=== PATIENT | male | born 1945 | race Asian ===

== ENCOUNTER → 2019-06-30 | Outpatient (CLI) | payer MEDICARE, OTHER ==
[~2019-06-30] MED LIST: ASPI-825 PO; ATOR20TA86 PO
== END | disposition home or self-care (01) ==
LOC: RADPV 09:53
PROVIDERS: ATTEND Internal Medicine
DX: M17.0 Bilateral primary osteoarthritis of knee (principal); M11.262 Other chondrocalcinosis, left knee; M25.462 Effusion, left knee

== ENCOUNTER → 2023-07-24 | Outpatient (CLI) | payer MEDICARE, OTHER ==
[~2023-07-24] VITALS: Ht 167.6 cm; Wt 66.0 kg
[~2023-07-24] MED LIST changes: +ATOR20TA PO; -ATOR20TA86 PO
[2023-07-24 15:27] VITALS: BP 121/78; PULSE 62; RESP 17; TEMP 98.1; O2SAT 98
== END | disposition still patient (30) ==
LOC: SRCNTR 15:03
PROVIDERS: ATTEND Internal Medicine
DX: R94.31 Abnormal electrocardiogram [ECG] [EKG] (principal); I48.0 Paroxysmal atrial fibrillation; E78.5 Hyperlipidemia, unspecified; N40.0 Benign prostatic hyperplasia without lower urinary tract symptoms; Z79.899 Other long term (current) drug therapy
CPT/HCPCS: 93005; G0463

== ENCOUNTER → 2023-08-29 | Outpatient (CLI) | payer MEDICARE, OTHER | END | disposition home or self-care (01) | LOC: RADPV 10:15 | PROVIDERS: ATTEND Internal Medicine | DX: I08.3 Combined rheumatic disorders of mitral, aortic and tricuspid valves (principal); I48.91 Unspecified atrial fibrillation | CPT/HCPCS: 93306 ==

== ENCOUNTER → 2023-10-16 | Outpatient (CLI) | payer MEDICARE, OTHER ==
[~2023-10-16] VITALS: Ht 167.6 cm; Wt 66.0 kg
[~2023-10-16] MED LIST changes: +CHOL200059 PO; +DABI150C2 PO; +FINA-27 PO; +MIRT-89 PO; +OMEP20 PO; +TAMS0.4C94 PO; +TRAZ-257 PO
[2023-10-16 14:13] VITALS: BP 136/77; PULSE 66; RESP 20; TEMP 98.1; O2SAT 98
== END | disposition home or self-care (01) ==
LOC: SRCNTR 13:53
PROVIDERS: ATTEND Internal Medicine
DX: Z09 Encounter for follow-up examination after completed treatment for conditions other than malignant neoplasm (principal); I48.0 Paroxysmal atrial fibrillation; N40.0 Benign prostatic hyperplasia without lower urinary tract symptoms
CPT/HCPCS: G0463